=== PATIENT | male | born 1970 | race African-American/Black ===

== ENCOUNTER 2020-08-03 16:18 | Observation (INO) | payer OTHER ==
[~2020-08-03] VITALS: Ht 175.3 cm; Wt 89.5 kg
[2020-08-03 16:20] VITALS: BP 149/91
[2020-08-03 17:30] LABS: ABSOLUTE NEUTROPHILS 6.5 thou/uL (1.4-8.2); BASOPHILS 1.6 % (0.0-2.0); EOSINOPHILS 0.9 % (0.0-3.0); HEMATOCRIT 40.4 % (42.0-52.0); HEMOGLOBIN 12.7 gm/dL (14.0-18.0); LYMPHOCYTES 14.6 % (24.0-44.0); MCH 32.4 pg (26.0-34.0); MCHC 31.5 g/dL (28.0-37.0); MCV 102.8 fL (80.0-100.0); MONOCYTES 13.8 % (1.0-8.0); PLATELET COUNT 294 thou/uL (150-400); POLYS 69.1 % (36.0-66.0); RBC 3.93 mil/uL (4.50-6.00); RDW 20.9 % (10.5-14.5); WBC 9.4 thou/uL (4.0-11.0)
[2020-08-03 17:36] LABS: CALCIUM 9.9 mg/dL (8.5-10.1); CREATININE 8.8 mg/dL (0.7-1.3); POTASSIUM 5.6 mmol/L (3.5-5.1)
[2020-08-03 17:55] LABS: ALBUMIN 3.8 g/dL (3.4-5.0); TOTAL BILIRUBIN 4.5 mg/dL (0.2-1.0); TOTAL PROTEIN 7.4 g/dL (6.4-8.2); TROPONIN-I 0.17 ng/mL (<0.06)
[2020-08-03 18:47] VITALS: BP 149/91
[2020-08-03 20:14] LABS: ANISOCYTOSIS 3+
[2020-08-03 20:15] LABS: MACROCYTES 1+; MICROCYTES 2+
[2020-08-03] MEDS ORDERED: ACETAMINOPHEN650 M5 PO (20:36)
[2020-08-03] MEDS ORDERED: PACERONE 200 M200 M1 PO (20:37)
[2020-08-03] MEDS ORDERED: ELIQUIS5 MG PO (20:38)
[2020-08-03] MEDS ORDERED: BENGAY GREASELE57 GM TOP (20:38)
[2020-08-03] MEDS ORDERED: DULCOLAX10 MG RECTAL (20:39)
[2020-08-03] MEDS ORDERED: ANTACID325 MG PO (20:43)
[2020-08-03] MEDS ORDERED: SANTYL OINTMENT30 G1 TOP (20:44)
[2020-08-03] MEDS ORDERED: PROTONIX40 M2 PO (20:45)
[2020-08-03] MEDS ORDERED: COMPAZINE10 MG PO (20:46)
[2020-08-03] MEDS ORDERED: ARTIFICIAL TEAR15 M2 OPHTHALMIC (20:47)
[2020-08-03] MEDS ORDERED: VELTASSA16.8 GM PO (20:47)
[2020-08-03] MEDS ORDERED: OXYCODONE HCL5 MG PO (20:48)
[2020-08-03] MEDS ORDERED: DAILY MULTIPLE1 EACH PO (20:49)
[2020-08-03] MEDS ORDERED: ONDANSETRON HCL4 M2 PO (20:49)
[2020-08-03] MEDS ORDERED: GLUCAGEN1 M2 INJECTION (20:50)
[2020-08-03] MEDS ORDERED: MIDODRINE HCL10 MG PO (20:50)
[2020-08-03] MEDS ORDERED: EPOGEN20000 UNI2 SUBQ (20:51)
[2020-08-03] MEDS ORDERED: BENADRYL25 MG PO (20:52)
[2020-08-03] MEDS ORDERED: DIGOX125 MCG PO (20:53)
[2020-08-03 23:41] VITALS: BP 128/86
[2020-08-03] MEDS ORDERED: LIDODERM1 EACH TOP (23:50)
[2020-08-04 00:15] VITALS: BP 138/62
--- NOTE | 2020-08-04 00:29 | NUR ---
I ATTEMPTED TO CALL REPORT TO FLOOR X 3. CHARGE NURSE CHARLES AWARE THAT PATIENT IS BEING TRANSFERRED TO [facility] AT THIS TIME. I SPOKE TO NIGEL BANKS ON [facility], SHE WAS NOTIFIED AND I WILL GIVE REPORT WHEN RECEIVING NURSE CALLS ER.
--- NOTE | 2020-08-04 00:49 | NUR ---
I GAVE REPORT TO MIR BANKS ON BY PHONE.
[2020-08-04 00:53] VITALS: BP 150/98
[2020-08-04 05:23] LABS: HEMATOCRIT 39.2 % (42.0-52.0); HEMOGLOBIN 12.2 gm/dL (14.0-18.0); MCH 32.6 pg (26.0-34.0); MCHC 31.2 g/dL (28.0-37.0); MCV 104.4 fL (80.0-100.0); RBC 3.75 mil/uL (4.50-6.00); RDW 20.4 % (10.5-14.5); WBC 10.7 thou/uL (4.0-11.0)
[2020-08-04 05:34] LABS: CALCIUM 10.3 mg/dL (8.5-10.1); POTASSIUM 5.4 mmol/L (3.5-5.1); TROPONIN-I 0.2 ng/mL (<0.06)
[2020-08-04 05:36] VITALS: BP 145/95
[2020-08-04 05:39] LABS: CREATININE 9.9 mg/dL (0.7-1.3)
--- NOTE | 2020-08-04 05:41 | NUR ---
Pt admitted to Rm 454 @ about 0050. Alert and oriented. VSS on RA. SOB with activity. Pt is from [facility]. Dialysis M/W/F. Pt unable to attend dialysis monday as dialysis facilty was closed due to inclement weather. Pt has about +3 edema to BLE. Wants to sit on the recliner. Feet elevated. Adm hx and assessment done. Pt has wound to coccyx. Will take pic and document prior to end of shift. Pt's brother Rosendo Goel called for update, this am and was updated. 1750ml Fluid restriction. Accu check. Fall risk. Fall precaution in place. Call light within reach. Will continue to monitor.
--- NOTE | 2020-08-04 06:48 | EKG ---
[address] [address] ELECTROCARDIOGRAM REPORT Name: JANET HERNANDEZ Effie Room #: 454-P [facility]#: [id number] Admission: 08/03/20 Attend Phys: Buster Roger MD Discharge: Date of : 68 Report #: [id number] [facility] ED Test Date: 2020-08-03 Test Time: 16:58:44 Pat Name: JANET HERNANDEZ Department: Room: [facility] Gender: M Screen Operator: NOÉ : 1970 Requested By: Kiko Díaz Order Number: [id number] MD: Carmelo Brantley Measurements Intervals [place] Rate: 62 P: [place]: QRS: -88 QRSD: 141 T: 43 QT: 450 QTc: 457 Interpretive Statements Atrial fibrillation 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
[2020-08-04 09:10] VITALS: BP 168/100
--- NOTE | 2020-08-04 10:53 | NUR ---
ADV. DIRECTIVE CONSULT [id number] WAS COMPLETED BY THIS PRESIDENT/[employer]. DPOA COMPLETED LISTING HIS BROTHER, BIRDIE, DPOA. BIRDIE IS AT . DR. PARRA WITNESSED.
--- NOTE | 2020-08-04 12:29 | NUR ---
PT ADMITTED RELATED TO ESRD, HYPERKALEMIA, DIALYSIS, DYSPNEA. CM REVIEWED CHART AND SPOKE WITH PT OVER THE PHONE THIS DAY. PT APPERARED TO BE A&O X4. CM ROLE INTRODUCED. PT INDICATED HE HAD BEEN SKILLE OVER AT [facility]. PT INDICATED HE GOES TO DIALYSIS MWF 11:30 CHAIR TIME AT [facility]. PT INDICATED HE ANTICIPATES RETURNING TO [facility] ONCE MEDICALLY STABLE. CM SPOKE WITH LIAISON AND SENT CLINICL UPDATE. CM TO FOLLOW INDICATED WITH DC PLANNING.
--- NOTE | 2020-08-04 13:51 | NUR ---
FAXED CLINICAL UPDATES TO [facility]. WILL CONFIRM WITH ROSITA THAT THEY RECEIVED. [facility] P [phone]; FAX [phone]; ROSITA P [phone]
[2020-08-04 16:01] VITALS: BP 136/88
--- NOTE | 2020-08-04 16:33 | NUR ---
PT DISCHARGING TODAY TO [facility] FAXED DC ORDERS/SUMMARY TO FACILITY SPOKE WITH ROSITA IN ADM SHE ARRANGED TRANSPORT BY [facility] FOR [phone]. NOTIFIED PT'S BROTHER (MONICA) OF DC AND TIME OF TRANSPORT HE IS IN AGREEMENT WITH DC. UNIT NOTIFIED AND CHART COPY PER US. DC SUMMARY FAXED TO [facility]. RN TO CALL REPORT TO [phone].
--- NOTE | 2020-08-04 18:24 | NUR ---
Assumed pt care at 7am.Pt in bed getting ready for hemodialysis.Assessment completed.vss.Pt c/o back pain during the hemodialysis.Oral pain med given with relief.Treatment completed around noon.Per rn staffing report, 3liter of fluid was taken off today with stable vs.Around 1515,pt called this rn and stated that he wanted to return to [facility] this evening if okay with his doctor.Dr Ferrer notified and rn field case manager called the [facility] with updates. Transport arranged for 1730.Chart copy done and report given to Kristen at [facility].At 1740,pt left per van in stable condition.New drsg applied to coccyx and picture taken earlier this shift.
== END 2020-08-04 17:35 ==
LOC: ER 16:18 → EROBS 18:50 → 4W 08-04 00:14
PROVIDERS: Nurse Practitioner; ADMIT Hospitalist; ATTEND Hospitalist
DX: I13.2 Hypertensive heart and chronic kidney disease with heart failure and with stage 5 chronic kidney disease, or end stage renal disease (principal); N18.6 End stage renal disease; I50.23 Acute on chronic systolic (congestive) heart failure; E87.5 Hyperkalemia; I48.20 Chronic atrial fibrillation, unspecified; I42.0 Dilated cardiomyopathy; E78.5 Hyperlipidemia, unspecified; K21.9 Gastro-esophageal reflux disease without esophagitis; D50.9 Iron deficiency anemia, unspecified; K92.2 Gastrointestinal hemorrhage, unspecified; F32.9 Major depressive disorder, single episode, unspecified; F41.9 Anxiety disorder, unspecified; I34.1 Nonrheumatic mitral (valve) prolapse; I27.20 Pulmonary hypertension, unspecified; F79 Unspecified intellectual disabilities; I95.9 Hypotension, unspecified; Z79.899 Other long term (current) drug therapy; Z99.2 Dependence on renal dialysis; Z20.828 Contact with and (suspected) exposure to other viral communicable diseases; Z91.15 Patient's noncompliance with renal dialysis
CPT/HCPCS: 32100